=== PATIENT | male | born 2000 | race Caucasian/White ===

== ENCOUNTER → 2021-12-14 | Outpatient (CLI) | payer BC | END | disposition home or self-care (01) | LOC: WOUNDCARE 01:59 | PROVIDERS: ATTEND Nurse Practitioner Family | DX: L89.313 Pressure ulcer of right buttock, stage 3 (principal); Z99.3 Dependence on wheelchair; G82.20 Paraplegia, unspecified ==

== ENCOUNTER → 2021-12-22 | Outpatient (CLI) | payer BC | END | disposition home or self-care (01) | LOC: WOUNDCARE 02:26 | PROVIDERS: ATTEND Nurse Practitioner Family | DX: L89.313 Pressure ulcer of right buttock, stage 3 (principal); G82.20 Paraplegia, unspecified; Z99.3 Dependence on wheelchair ==

== ENCOUNTER → 2021-12-30 | Outpatient (CLI) | payer BC | LOC: WOUNDCARE 00:59 | PROVIDERS: ATTEND Nurse Practitioner Family | DX: Z53.21 Procedure and treatment not carried out due to patient leaving prior to being seen by health care provider (principal) ==

== ENCOUNTER → 2022-01-13 | Outpatient (CLI) | payer BC | END | disposition home or self-care (01) | LOC: WOUNDCARE 02:23 | PROVIDERS: ATTEND Nurse Practitioner Family | DX: L89.313 Pressure ulcer of right buttock, stage 3 (principal); G82.20 Paraplegia, unspecified; Z99.3 Dependence on wheelchair ==

== ENCOUNTER → 2022-01-27 | Outpatient (CLI) | payer BC, MEDICAID | END | disposition home or self-care (01) | LOC: WOUNDCARE 01:49 | PROVIDERS: ATTEND Nurse Practitioner Family | DX: L89.313 Pressure ulcer of right buttock, stage 3 (principal); G82.20 Paraplegia, unspecified; Z99.3 Dependence on wheelchair; Z71.89 Other specified counseling ==

== ENCOUNTER → 2022-02-03 | Outpatient (CLI) | payer BC, MEDICARE, MEDICAID | END | disposition home or self-care (01) | LOC: WOUNDCARE 02:23 | PROVIDERS: ATTEND Nurse Practitioner Family | DX: L89.313 Pressure ulcer of right buttock, stage 3 (principal); G82.20 Paraplegia, unspecified; Z71.89 Other specified counseling; Z99.3 Dependence on wheelchair ==

== ENCOUNTER → 2022-02-11 | Outpatient (CLI) | payer BC, MEDICAID | END | disposition home or self-care (01) | LOC: WOUNDCARE 02:18 | PROVIDERS: ATTEND Nurse Practitioner Family | DX: L89.313 Pressure ulcer of right buttock, stage 3 (principal); G82.20 Paraplegia, unspecified; Z99.3 Dependence on wheelchair; Z71.89 Other specified counseling ==

== ENCOUNTER → 2022-02-17 | Outpatient (CLI) | payer BC, MEDICARE, MEDICAID | END | disposition home or self-care (01) | LOC: WOUNDCARE 02:28 | PROVIDERS: ATTEND Nurse Practitioner Family | DX: L89.313 Pressure ulcer of right buttock, stage 3 (principal); G82.20 Paraplegia, unspecified; Z71.89 Other specified counseling; Z99.3 Dependence on wheelchair ==

== ENCOUNTER → 2022-02-24 | Outpatient (CLI) | payer BC, MEDICARE, MEDICAID | LOC: WOUNDCARE 01:12 | PROVIDERS: ATTEND Nurse Practitioner Family | DX: L89.313 Pressure ulcer of right buttock, stage 3 (principal); G82.20 Paraplegia, unspecified; Z71.89 Other specified counseling; Z99.3 Dependence on wheelchair ==

== ENCOUNTER → 2022-03-03 | Outpatient (CLI) | payer BC, MEDICARE, MEDICAID | END | disposition home or self-care (01) | LOC: WOUNDCARE 01:02 | PROVIDERS: ATTEND Nurse Practitioner Family | DX: L89.313 Pressure ulcer of right buttock, stage 3 (principal); G82.20 Paraplegia, unspecified; Z71.89 Other specified counseling; Z99.3 Dependence on wheelchair ==

== ENCOUNTER → 2022-03-10 | Outpatient (CLI) | payer BC, MEDICARE, MEDICAID | END | disposition home or self-care (01) | LOC: WOUNDCARE 00:27 | PROVIDERS: ATTEND Nurse Practitioner Family | DX: L89.313 Pressure ulcer of right buttock, stage 3 (principal); G82.20 Paraplegia, unspecified; Z71.89 Other specified counseling; Z99.3 Dependence on wheelchair ==

== ENCOUNTER → 2022-03-17 | Outpatient (CLI) | payer BC, MEDICARE, MEDICAID | END | disposition home or self-care (01) | LOC: WOUNDCARE 00:57 | PROVIDERS: ATTEND Nurse Practitioner Family | DX: L89.313 Pressure ulcer of right buttock, stage 3 (principal); G82.20 Paraplegia, unspecified; Z99.3 Dependence on wheelchair; Z71.89 Other specified counseling ==

== ENCOUNTER → 2022-03-23 | Outpatient (CLI) | payer BC, MEDICARE, MEDICAID | END | disposition home or self-care (01) | LOC: WOUNDCARE 00:47 | PROVIDERS: ATTEND Nurse Practitioner Family | DX: L89.313 Pressure ulcer of right buttock, stage 3 (principal); G82.20 Paraplegia, unspecified; Z99.3 Dependence on wheelchair; Z71.89 Other specified counseling ==

== ENCOUNTER → 2022-03-30 | Outpatient (CLI) | payer BC, MEDICARE, MEDICAID | END | disposition home or self-care (01) | LOC: WOUNDCARE 01:30 | PROVIDERS: ATTEND Nurse Practitioner Family | DX: L89.313 Pressure ulcer of right buttock, stage 3 (principal); G82.20 Paraplegia, unspecified; Z99.3 Dependence on wheelchair; Z71.89 Other specified counseling ==

== ENCOUNTER → 2022-04-06 | Outpatient (CLI) | payer BC, MEDICARE, MEDICAID | END | disposition home or self-care (01) | LOC: WOUNDCARE 01:11 | PROVIDERS: ATTEND Nurse Practitioner Family | DX: L89.313 Pressure ulcer of right buttock, stage 3 (principal); G82.20 Paraplegia, unspecified; Z99.3 Dependence on wheelchair; Z71.89 Other specified counseling ==

== ENCOUNTER → 2022-04-13 | Outpatient (CLI) | payer BC, MEDICARE, MEDICAID | END | disposition home or self-care (01) | LOC: WOUNDCARE 02:53 | PROVIDERS: ATTEND Nurse Practitioner Family | DX: L89.313 Pressure ulcer of right buttock, stage 3 (principal); G82.20 Paraplegia, unspecified; Z99.3 Dependence on wheelchair; Z71.89 Other specified counseling ==

== ENCOUNTER → 2022-04-21 | Outpatient (CLI) | payer BC, MEDICARE, MEDICAID | END | disposition home or self-care (01) | LOC: WOUNDCARE 01:24 | PROVIDERS: ATTEND Nurse Practitioner Family | DX: L89.313 Pressure ulcer of right buttock, stage 3 (principal); G82.20 Paraplegia, unspecified; Z99.3 Dependence on wheelchair ==

== ENCOUNTER → 2022-05-05 | Outpatient (CLI) | payer BC, MEDICARE, MEDICAID | END | disposition home or self-care (01) | LOC: WOUNDCARE 04:00 | PROVIDERS: ATTEND Nurse Practitioner Family | DX: L89.313 Pressure ulcer of right buttock, stage 3 (principal); G82.20 Paraplegia, unspecified; Z99.3 Dependence on wheelchair ==